=== PATIENT | male | born 1960 | race African-American/Black ===

== ENCOUNTER 2017-04-30 06:48 | Day surgery (SDC) | payer OTHER ==
[2017-04-23 10:01] VITALS: BMI 32.3
[2017-04-30] MEDS ORDERED: EPINEPHrine 1:1,000 1 MG/1 ML - 30ML VIAL (INJECTION) ONE (08:36)
[2017-04-30] MEDS ORDERED: BUPIVACAINE HCL/PF 2.5 MG/ML - 30 ML VIAL IJ ONE (08:36)
[2017-04-30] MEDS ORDERED: LIDOCAINE HCL/PF 2% SDV 5ML VIAL ONE (08:49)
[2017-04-30] MEDS ORDERED: PROPOFOL 20 ML ONE ×2 (08:49→09:54)
[2017-04-30] MEDS ORDERED: MIDAZOLAM HCL 2 MG/2 ML SINGLE DOSE VIAL ONE (08:58)
[2017-04-30] MEDS ORDERED: KETOROLAC TROMETHAMINE 30 MG/1 ML VIAL ONE (09:29)
[2017-04-30] MEDS ORDERED: ONDANSETRON 4 MG/2 ML VIAL ONE ×2 (09:29→10:46)
[2017-04-30] MEDS ORDERED: DEXAMETHASONE SOD PHOSPHATE 4 MG/1 ML VIAL ONE (09:29)
[2017-04-30] MEDS ORDERED: ceFAZolin SODIUM 1 GM VIAL ONE (09:29)
[2017-04-30] MEDS ORDERED: BUPIVACAINE HCL/PF 0.25% (2.5MG/ML) 10 ML VIAL IJ ONE ×2 (09:30)
[2017-04-30] MEDS ORDERED: ePHEDrine SULFATE 50 MG/1 ML AMPULE ONE (09:37)
--- NOTE | 2017-04-30 10:15 | OP ---
DATE OF OPERATION: 04/30/2017 PREOPERATIVE DIAGNOSIS: Left knee medial meniscal tear. POSTOPERATIVE DIAGNOSIS: Left knee medial meniscal tear. PROCEDURE: Left knee arthroscopy with partial medial meniscectomy. SURGEON: Brennon Wilson MD MATERIAL ANALYST: ARELI Lira ANESTHESIA: General. POSTOPERATIVE CONDITION: Stable. COMPLICATIONS: None. TOURNIQUET TIME: 30 minutes. INDICATIONS: This is a pleasant gentleman who is suffering from medial knee pain. MRI demonstrated medial meniscal tear. Treatment options including nonoperative versus operative management were discussed in detail. Operative risks were reviewed including bleeding, infection, neurovascular injury, need for further surgery, postoperative pain and stiffness, progression of osteoarthritis. We discussed medical risks such as heart attack, stroke, DVT, PE, and . I addressed all the patient's questions. He voiced understanding and elected to proceed. DESCRIPTION OF PROCEDURE: Patient was brought to the operating room where general anesthesia was administered. The left lower extremity was then prepped and draped in the usual sterile fashion. A preoperative dose of antibiotics was given, and the usual timeout procedure was performed. At this point, the knee was marked. The portals were injected subcutaneously with 0.25% Marcaine. An 11 blade was now used to establish the lateral portal. The arthroscope was passed into the knee. Examination of the patellofemoral joint demonstrated some mild superficial articular cartilage wear. Passing the arthroscope down to the notch demonstrated intact ACL and PCL. The arthroscope was now passed medially. A medial portal was established under spinal needle localization. The medial compartment was examined, demonstrating moderate fraying of the femoral and mild fraying of the tibial articular surfaces. There was a complex tear with a large radial component noted at the junction of the body and posterior horn of the medial meniscus. Utilizing meniscal biters as well as a shaver, this was debrided down to a stable base. The lateral compartment was now inspected. Here, there was superficial fraying of the femoral and tibial surfaces. The meniscus was intact. At this point, the excess fluid was withdrawn from the knee. The portals were sutured using 3-0 nylon. Sterile dressings were placed. The patient was extubated, transferred to recovery room in stable condition. Jose RANDHAWA/[id number] MTDD
[2017-04-30] MEDS ORDERED: ONDANSETRON 4 MG/2 ML VIAL IVPUSH PRN (10:30)
[2017-04-30] MEDS ORDERED: LACTATED RINGERS SOLUTION 1,000 ML IV SCH (10:30)
[2017-04-30] MEDS ORDERED: oxyCODONE HCL 5 MG TABLET PO PRN (10:30)
[2017-04-30] MEDS ORDERED: PROMETHAZINE HCL 25 MG/1 ML VIAL IVPUSH PRN (10:30)
[2017-04-30 11:35] VITALS: TEMP 98
[2017-04-30 12:46] VITALS: BP 136/80; PULSE 80
== END 2017-04-30 13:00 | disposition home or self-care (01) ==
LOC: FASU 06:48
PROVIDERS: ATTEND Orthopaedic Surgery Sports Medicine
PROC: 0SBD4ZZ Excision of Left Knee Joint, Percutaneous Endoscopic Approach (ICD-10-PCS; principal; 2017-04-30 09:25)
DX: S83.242A Other tear of medial meniscus, current injury, left knee, initial encounter (principal); X58.XXXA Exposure to other specified factors, initial encounter; Y93.9 Activity, unspecified; Y92.9 Unspecified place or not applicable
CPT/HCPCS: 94760